=== PATIENT | male | born 1980 | race Caucasian/White ===

== ENCOUNTER 2016-07-26 06:09 | Observation (INO) | payer OTHER ==
[~2016-07-26] VITALS: Ht 188 cm; Wt 128.1 kg
[2016-07-26] VITALS (7 sets, daily range): BP systolic 122–170; BP diastolic 80–100; PULSE 79–85; RESP 16–20; TEMP 97.8–98.5; O2SAT 98–100
[~2016-07-26 06:09] MED LIST: AMLO5TAB2 PO; ATEN25TA PO; CLON0.1T PO; ENAL20TA PO; METO5TAB PO; PRIL20TA2 PO; ZOFR4TAB PO
[2016-07-26] MEDS ORDERED: AMPICILLIN/SULBAC 3 GM/NS 100 ML IV SCH ×2 (06:30)
[2016-07-26] MEDS ORDERED: IBUP800T23 PO (06:37)
[2016-07-26] MEDS ORDERED: INSULIN HUMAN REGULAR 1,000 UNITS/10 ML VIAL SQ PRN (06:45)
[2016-07-26] MEDS ORDERED: CHLORHEXIDINE GLUCONATE 2 % 1 PACK (2 CLOTHS) TOPICAL PRN (06:45)
[2016-07-26] MEDS ORDERED: POVIDONE IODINE 5% (ANTISEPSIS KIT) 4 APPLICATIONS EACH NARE PRN (06:45)
[2016-07-26] MEDS ORDERED: LACTATED RINGER'S 1000 ML IV PRN (06:45)
[2016-07-26] MEDS ORDERED: METOPROLOL TARTRATE 25 MG TAB PO PRN (06:45)
[2016-07-26] MEDS ORDERED: SODIUM CHLORID 0.9% 500 ML IV PRN (06:45)
[2016-07-26] MEDS ORDERED: OXYMETAZOLINE HCL 0.05% 15 ML NASAL SPRAY ONE (07:03)
[2016-07-26] MEDS ORDERED: BACITRACIN TOP OINT 15 GM TUBE ONE (07:04)
[2016-07-26] MEDS ORDERED: LIDOCAINE 1%/EPINEPHrine 1:100,000 SOLN 30 ML VIAL ONE (07:04)
[2016-07-26] MEDS: AMPICILLIN/SULBAC 3 GM/NS 100 ML IV SCH ×8 (07:28→16:29)
[2016-07-26] MEDS ORDERED: MIDAZOLAM HCL 2 MG/2 ML VIAL ONE (07:29)
[2016-07-26] MEDS ORDERED: DO NOT ADM ANY ANTICOAGULANT DRUGS PRN (09:24)
[2016-07-26] MEDS ORDERED: MORPHINE SULFATE 4 MG/ML INJ ONE (09:40)
[2016-07-26] MEDS ORDERED: ONDANSETRON HCL 4 MG/2 ML VIAL ONE (09:41)
[2016-07-26] MEDS: LACTATED RINGER'S 1000 ML INJ 1,000 ML IV SCH ×2 (11:00→20:37)
[2016-07-26] MEDS ORDERED: PROPOFOL 200 MG/20 ML AMP IV ONE (12:00)
[2016-07-26] MEDS ORDERED: ONDANSETRON HCL 4 MG/2 ML VIAL IV PUSH ONE (12:00)
[2016-07-26] MEDS: ACETAMINOPHEN/HYDROcodone 325 MG/5 MG TAB PO PRN (18:43)
[2016-07-27] VITALS: BP 157/91; PULSE 75; RESP 20; TEMP 98.3; O2SAT 100
[2016-07-27] MEDS: AMPICILLIN/SULBAC 3 GM/NS 100 ML IV SCH ×4 (00:10→07:44)
[2016-07-27] MEDS: ACETAMINOPHEN/HYDROcodone 325 MG/5 MG TAB PO PRN (00:16)
[2016-07-27 04:00] VITALS: BP 142/104; PULSE 74; RESP 20; TEMP 98.2; O2SAT 100
[2016-07-27] MEDS ORDERED: ONDANSETRON ODT 4 MG TAB PO PRN ×2 (05:15)
[2016-07-27] MEDS: LACTATED RINGER'S 1000 ML INJ 1,000 ML IV SCH (07:44)
[2016-07-27 07:47] VITALS: O2SAT 99
[2016-07-27 08:00] VITALS: BP 170/100; PULSE 72; RESP 20; TEMP 97.8; O2SAT 100
[2016-07-27] MEDS ORDERED: METOCLOPRAMIDE HCL 10 MG TAB PO SCH (08:00)
[2016-07-27] MEDS ORDERED: ENALAPRIL MALEATE 10 MG TAB PO SCH (09:00)
[2016-07-27] MEDS ORDERED: PANTOPRAZOLE SOD 20 MG DELAYED RELEASE TAB PO SCH (09:00)
--- NOTE | 2016-08-01 08:45 | MP ---
cc: NORBERTO MCKEE M.D. DATE OF SURGERY: 07/26/[address] Norberto Mckee PREOPERATIVE DIAGNOSIS 1. Chronic pansinusitis. 2. Nasal airway obstruction. 3. Nasal septal deviation. 4. Hypertrophy of inferior turbinates. 5. Septal perforation. POSTOPERATIVE DIAGNOSIS 1. Chronic pansinusitis. 2. Nasal airway obstruction. 3. Nasal septal deviation. 4. Hypertrophy of inferior turbinates. 5. Septal perforation. OPERATION PERFORMED 1. Open repair nasal septal fracture. 2. Bilateral submucosal resection of inferior turbinates. 3. Bilateral endoscopic total ethmoidectomy. 4. Bilateral endoscopic maxillary antrostomy with removal of maxillary sinus tissue. 5. Bilateral endoscopic exploration of frontal sinus ducts. 6. Bilateral endoscopic sphenoidotomy. INDICATIONS The indications are documented in the history and physical. DESCRIPTION OF OPERATION The patient was taken to OR #2 and placed in the supine position. Following induction of general anesthesia and intubation the nose was packed bilaterally with cotton pledgets saturated in 0.05% oxymetazoline. The septal mucosa and inferior turbinates were injected with a total of 12 mL of 1% Xylocaine with epinephrine 1:100,000. He was then prepped and draped for surgery. Packing was removed and a hemitransfixion incision was made in the right nasal vestibule and through this incision the mucosa of septum was elevated bilaterally as far as the junction of the bony and cartilaginous septum. This included elevation of the mucosa from the margins of the perforation which was in the central area of the quadrangular cartilage, approximately 1.5 cm ovoid perforation. There was evidence of old cartilaginous fracture extending down into the maxillary crest. Additional quadrangular cartilage was removed posterior to the perforation back as far as the junction with the bone. This was around 1.5 x 1.5 cm, preserving 1.5 cm dorsal and caudal cartilaginous struts. The caudal strut was displaced into the right nasal vestibule and a few millimeters were taken off of its base inferiorly to allow it to return to the midline. This was sewn in place at the midline using a single suture of 4-0 Vicryl. The mucosa was elevated from the bony septum and the maxillary crest. The bony septum was removed with Afton-Maldonado forceps and Feliberto septal forceps. The maxillary crest was removed using a 6 mm Alcides chisel preserving the anterior nasal spine. The incision was then closed with a running suture of 4-0 chromic and the mucosal layers of septum were approximated to each other with a quilting stitch of 4-0 plain gut. The inferior turbinates were addressed next. They were fractured out medially and stab incisions were opened along their inferior surfaces. Through these incisions the submucosal soft tissue was reduced using a curet and preserving the conchal bone. The incision was then cauterized using the suction Bovie at 35 mishra and the remnants of the inferior turbinates were then re-lateralized to the lateral nasal wall. At this point forward the operation was completed using endoscopic visualization. Additional injections of lidocaine and epinephrine were made into the middle turbinates, the uncinate processes, into the anterior and posterior ethmoid cells. Additional 10 mL were injected. The left side was addressed first beginning with amputation of the middle turbinate using through-cutting Blakesley forceps and the power microdebrider followed by removal of the uncinate process using a sickle knife was exposed the ethmoid bulla. The ethmoid bulla showed evidence of polypoid degeneration. It was bluntly penetrated with Blakesley forceps and the anterior ethmoid cells were exenterated of bone and polypoid soft tissue. This was carried back as the basal lamella of the middle turbinate which was then reduced medially to laterally using the power debrider exposing the posterior ethmoid cells. These were also filled with polypoid tissue. Bone and soft tissue was removed. All of this was included in the specimen labeled left sinus contents. The superior turbinate was preserved. Next, the maxillary ostium was enlarged using Stammberger forceps and the power debrider. This gave access to the cavity which was partially filled with polypoid tissue which was debrided using Blakesley forceps and the power debrider. The sphenoid ostium was then penetrated with a #10 suction and enlarged using the power microdebrider. This side was then irrigated with chilled saline and was then packed with cotton pledgets saturated in oxymetazoline while the right side was operated in the same fashion beginning with amputation of the middle turbinate followed by uncinectomy and exenteration of the anterior and posterior ethmoid cells and then enlargement of the sphenoid and maxillary sinus ostia. The soft tissue and bone from the right side was included in the specimen labeled right sinus contents. Lastly, the balloon dilation was completed on the frontals beginning with the left side. A guidewire was advanced into the frontal duct and over the wire the balloon was advanced into the frontal sinus and then inflated at three levels superiorly at the midpoint and inferiorly with the junction with the anterior ethmoid cells. Each side was inflated to a pressure of 12 atmospheres. Following dilation the duct was debrided of bone and soft tissue including additional polypoid tissue which was obstructing the frontal sinus duct. It was verified patent all the way into the frontal sinus using a 70-degree scope and a curved suction. The right side was operated in the same fashion with dilation of the duct and debridement of the frontal duct of bone and soft tissue. When this was completed the cotton pledgets were removed bilaterally, both sides were irrigated and suctioned. The ethmoid and maxillary sinuses were filled with Stammberger sinus foam. The inferior one-half of the nose was then filled with 5.5 mm Rapid Rhino packs. Each one was inflated with 5 mL of air. The procedure was then terminated. The patient was reversed from anesthesia and taken to Recovery in good condition. There were no complications. Blood loss was 200 mL. MD MISAEL Urena/VAN /6:34 AM /8:25 AM
== END 2016-07-27 09:11 | disposition home or self-care (01) ==
LOC: PHSDC 06:09 → HSDI 09:29 → PH3B 10:47
PROVIDERS: ADMIT Otolaryngology; ATTEND Otolaryngology
DX: J34.2 Deviated nasal septum (principal); J34.3 Hypertrophy of nasal turbinates; J32.4 Chronic pansinusitis; Z87.891 Personal history of nicotine dependence
CPT/HCPCS: 30140; 30520; 31255; 31267; 31276; 31287; 88305; 88311; 94762; G0378; J0295; J2250; J2270; J2405; J3010; J7120